=== PATIENT | female | born 2000 | race American Indian/Alaskan Native ===

== ENCOUNTER 2020-12-07 01:45 | Emergency (ER) | payer BC ==
[2020-12-07 01:54] VITALS: BP 131/78
== END 2020-12-07 04:15 | disposition home or self-care (01) ==
LOC: ED 01:45
DX: L01.1 Impetiginization of other dermatoses (principal); F17.200 Nicotine dependence, unspecified, uncomplicated; F12.10 Cannabis abuse, uncomplicated; Z79.899 Other long term (current) drug therapy
CPT/HCPCS: 36415; 80048; 82140; 85025; 96365; 96375; 99283; J2930